=== PATIENT | male | born 1960 | race Caucasian/White ===

== ENCOUNTER 2023-05-04 11:55 | Outpatient (CLI) | payer BC | END 2023-05-04 11:56 | disposition home or self-care (01) | LOC: RAD 11:55 | PROVIDERS: ATTEND Family Medicine | DX: M25.562 Pain in left knee (principal); H93.90 Unspecified disorder of ear, unspecified ear; M17.12 Unilateral primary osteoarthritis, left knee ==

== ENCOUNTER 2025-03-10 10:35 | Outpatient (CLI) | payer MEDICARE | END 2025-03-10 10:36 | disposition home or self-care (01) | LOC: SCSRAD 10:35 | PROVIDERS: ATTEND Nurse Practitioner Family | DX: S49.91XA Unspecified injury of right shoulder and upper arm, initial encounter (principal); S43.51XA Sprain of right acromioclavicular joint, initial encounter ==